=== PATIENT | male | born 1985 | race Caucasian/White ===

== ENCOUNTER 2023-08-07 14:55 | Emergency (ER) | payer OTHER ==
[~2023-08-07] VITALS: Ht 170.2 cm; Wt 94.8 kg
[2023-08-07 15:02] VITALS: BP 151/88; PULSE 85; RESP 16; TEMP 97.7; O2SAT 98
[2023-08-07] MEDS ORDERED: KETOROLAC 30 MG/ML VIAL IM ONE (15:25)
[2023-08-07 16:22] LABS: HEMATOCRIT 42.7 % (36-52); HEMOGLOBIN 14.4 g/dL (12.0-18.0); MEAN CORPUSCULAR HEMOGLOBIN 29 pg (27-31); MEAN CORPUSCULAR HGB CONC 34 g/dL (33-37); MEAN CORPUSCULAR VOLUME 85.8 fL (80-94); PLATELET COUNT (AUTO) 227 K/uL (140-450); RED BLOOD CELL COUNT(AUTO) 4.98 MIL/uL (4.20-6.10); RED CELL DISTRIBUTION WIDTH 13.6 % (11.6-13.7); WHITE BLOOD COUNT (AUTO) 12.8 K/uL (4.8-10.8)
[2023-08-07 16:34] LABS: ANION GAP 13.9 (8-16); CALCIUM 8.5 mg/dL (8.5-10.1); CREATININE 0.8 mg/dL (0.6-1.3); POTASSIUM 3.9 mmol/L (3.5-5.1)
[2023-08-07 16:37] LABS: BILIRUBIN,URINE NEGATIVE (NEGATIVE); BLOOD, URINE 3+ (NEGATIVE); COLOR,URINE YELLOW (YELLOW); LEUKOCYTE ESTERASE ,URINE TRACE (NEGATIVE); NITRITE, URINE POSITIVE (NEGATIVE); PROTEIN,URINE 1+ (NEGATIVE); UGLUCOSE NEGATIVE (NEGATIVE); UROBILINOGEN,URINE 0.2 EU/dL (0.2 - 1)
[2023-08-07 16:47] LABS: APPEARANCE,URINE HAZY (CLEAR)
[2023-08-07] MEDS: NACL 0.9% 1,000 ML IV ONE (16:53)
[2023-08-07] MEDS: KETOROLAC 30 MG/ML VIAL IVP ONE (16:53)
[2023-08-07 16:57] LABS: ALBUMIN 3.8 g/dL (3.4-5.0); BILIRUBIN,DIRECT 0.1 mg/dL (0.0-0.3); TOTAL BILIRUBIN 0.7 mg/dL (0.0-1.0)
[2023-08-07 17:06] LABS: WBC,URINE 0-5 /HPF (0-5)
[2023-08-07 17:07] LABS: BACTERIA,URINE FEW /HPF (None Seen); SQUAMOUS EPITHELIAL CELL,UR 0-3 (FEW) /LPF (0-3 (FEW))
[2023-08-07] MEDS ORDERED: CEFP200T20 PO (18:52)
[2023-08-07] MEDS ORDERED: TAMS0.4C96 PO (18:52)
[2023-08-07] MEDS ORDERED: IBUP-2213 PO (18:52)
[2023-08-07 18:57] LABS: LYMPHOCYTES % (MANUAL) 4 % (20-46); MONOCYTES % (MANUAL) 2 % (5-12)
[2023-08-07 18:58] LABS: ANISOCYTOSIS 1+; POIKILOCYTOSIS 1+; POLYCHROMASIA 1+
[2023-08-07 19:09] VITALS: BP 134/70; PULSE 78; RESP 18; TEMP 98.3; O2SAT 96
== END 2023-08-07 19:08 | disposition home or self-care (01) ==
LOC: MED 14:55
DX: N23 Unspecified renal colic (principal); N30.01 Acute cystitis with hematuria; E11.9 Type 2 diabetes mellitus without complications; Z79.899 Other long term (current) drug therapy
CPT/HCPCS: 36415; 74176; 80048; 80076; 81001; 82948; 83690; 85025; 96361; 96374; 99285; J1885; J7030